=== PATIENT | male | born 1950 | race Caucasian/White ===

== ENCOUNTER 2017-07-16 17:54 | Emergency (ER) | payer MEDICARE, OTHER ==
[~2017-07-16] VITALS: Ht 182.9 cm; Wt 77.1 kg
[2017-07-16 17:56] VITALS: BP 122/81
[2017-07-16] MEDS ORDERED: LIDOCAINE 1%, 10ML ONE (18:22)
[2017-07-16] MEDS ORDERED: DIPH,PERTUSS(ACELL),TET VAC/PF 0.5 ML IM-VACC ONE ×2 (18:22→18:30)
[2017-07-16] MEDS ORDERED: LIDOCAINE 1%, 20ML INFIL ONE (18:30)
[2017-07-16] MEDS ORDERED: BACITRACIN ZINC OINT 500U/GM, 0.9 GM ONE (19:16)
== END 2017-07-16 19:30 | disposition home or self-care (01) ==
LOC: ED 19:00
DX: S01.81XA Laceration without foreign body of other part of head, initial encounter (principal); W01.198A Fall on same level from slipping, tripping and stumbling with subsequent striking against other object, initial encounter; Y93.89 Activity, other specified; Y92.89 Other specified places as the place of occurrence of the external cause; Y99.8 Other external cause status
CPT/HCPCS: 13132; 70450; 90471; 90715

== ENCOUNTER 2017-07-27 11:13 | Emergency (ER) | payer MEDICARE, OTHER ==
[~2017-07-27] VITALS: Ht 182.9 cm; Wt 75.0 kg
[2017-07-27 11:15] VITALS: BP 136/86
== END 2017-07-27 12:37 | disposition home or self-care (01) ==
LOC: ED 12:10
DX: S01.81XD Laceration without foreign body of other part of head, subsequent encounter (principal); X58.XXXD Exposure to other specified factors, subsequent encounter
CPT/HCPCS: 99282

== ENCOUNTER 2020-01-18 13:28 | Inpatient (IN) | payer MEDICARE, OTHER ==
[~2020-01-18] VITALS: Ht 182.9 cm; Wt 76.5 kg
[2020-01-18] MEDS ORDERED: HYDROmorphone 1 MG/ML, 1ML INJ ONE ×2 (14:15→19:18)
[2020-01-18] MEDS: HYDROmorphone 1 MG/ML, 1ML INJ IVPush PRN ×2 (14:18→19:21)
--- NOTE | 2020-01-18 14:19 | NUR ---
pt medicated per order. tech in room to place c colar. pt now states he is having neck pain. described s a dull achy pain.
--- NOTE | 2020-01-18 14:36 | NUR ---
poc is to admit pt. pt explained poc and agrees. still awaiting ct of neck for c colar clearance.
[2020-01-18 15:15] LABS: BASOPHILS # (AUTO) 0.05 x10^3/uL (0-0.1); BASOPHILS % (AUTO) 1 % (0-1); EOSINOPHILS # (AUTO) 0.16 x10^3/uL (0-0.4); EOSINOPHILS % (AUTO) 2 % (1-7); LYMPHOCYTES # (AUTO) 2.23 x10^3/uL (1-3.4); LYMPHOCYTES % (AUTO) 22 % (22-44); MD NO; MEAN CORPUSCULAR HEMOGLOBIN 29.9 pg (27.5-34.5); MEAN CORPUSCULAR HGB CONC 33.4 g/dL (33.2-36.2); MEAN CORPUSCULAR VOLUME 89.4 fL (81-97); MEAN PLATELET VOLUME 10.8 fL (7.4-10.4); MONOCYTES # (AUTO) 0.91 x10^3/uL (0.2-0.8); MONOCYTES % (AUTO) 9 % (2-9); NEUTROPHILS # (AUTO) 6.71 x10^3/uL (1.8-6.8); NEUTROPHILS % (AUTO) 67 % (42-75); PLATELET COUNT 244 x10^3/uL (130-400); RED BLOOD COUNT 5.76 x10^6/uL (4.38-5.82); RED CELL DISTRIBUTION WIDTH 13.5 % (9.4-14.8)
[2020-01-18 15:27] LABS: ALANINE AMINOTRANSFERASE 57 U/L (12-78); ALBUMIN 3.7 g/dL (3.4-5.0); ANION GAP 9 mmol/L (5-15); CALCIUM 9.6 mg/dL (8.5-10.1); CHLORIDE 110 mmol/L (98-107); CREATININE 0.41 mg/dL (0.7-1.3)
[2020-01-18 15:30] LABS: ALKALINE PHOSPHATASE 85 U/L (45-117); BILIRUBIN,TOTAL 0.7 mg/dL (0.2-1.0); TOTAL PROTEIN 7.5 g/dL (6.4-8.2)
--- NOTE | 2020-01-18 15:52 | NUR ---
PT IN X RAY NOW
[2020-01-18] MEDS ORDERED: GABAPENTIN 300 MG CAPSULE PO PRN (17:00)
[2020-01-18] MEDS ORDERED: HYDROcodone/APAP 5/325 TABLET PO PRN (17:00)
[2020-01-18] MEDS ORDERED: MELATONIN 5 MG TABLET PO PRN (17:00)
[2020-01-18] MEDS ORDERED: ACETAMINOPHEN 325 MG TABLET PO PRN (17:00)
[2020-01-18] MEDS ORDERED: ONDANSETRON 2MG/ML, 2ML IVPush PRN (17:00)
[2020-01-18] MEDS ORDERED: ONDANSETRON ODT 4 MG PO PRN (17:00)
--- NOTE | 2020-01-18 17:30 | NUR ---
PT RESTING COMFORTABLY. PER PT PAIN IS AT A TOLERABLE LEVEL. VSS, CALL LIGHT IN REACH, DOOR OPEN AND PT INSTRUCTED TO CALL FOR HELP.
[2020-01-18] MEDS ORDERED: ENOXAPARIN 40 MG/0.4 ML ONE (19:26)
[2020-01-18] MEDS: ENOXAPARIN 40 MG/0.4 ML SQ SCH (19:32)
[2020-01-18 21:00] VITALS: BP_SYST 121; BP_SYST 92; BP_DIAS 56; BP_DIAS 81
[2020-01-18] MEDS: DOCUSATE 100 MG CAPSULE PO SCH (21:00)
[2020-01-18] MEDS: SODIUM CHLORIDE 0.9% 1,000 ML IV SCH (21:18)
[2020-01-18] MEDS ORDERED: ZOLP5TAB PO (23:22)
[2020-01-18] MEDS: morphine SULFATE 10 MG/ML, 1ML IVPush PRN (23:31)
[2020-01-19] VITALS (7 sets, daily range): BP systolic 100–113; BP diastolic 66–78
[2020-01-19 06:15] LABS: BASOPHILS # (AUTO) 0.05 x10^3/uL (0-0.1); BASOPHILS % (AUTO) 1 % (0-1); EOSINOPHILS # (AUTO) 0.23 x10^3/uL (0-0.4); EOSINOPHILS % (AUTO) 3 % (1-7); LYMPHOCYTES # (AUTO) 2.15 x10^3/uL (1-3.4); LYMPHOCYTES % (AUTO) 28 % (22-44); MD NO; MEAN CORPUSCULAR HEMOGLOBIN 29.7 pg (27.5-34.5); MEAN CORPUSCULAR HGB CONC 33.1 g/dL (33.2-36.2); MEAN CORPUSCULAR VOLUME 89.8 fL (81-97); MEAN PLATELET VOLUME 11.3 fL (7.4-10.4); MONOCYTES # (AUTO) 0.72 x10^3/uL (0.2-0.8); MONOCYTES % (AUTO) 9 % (2-9); NEUTROPHILS % (AUTO) 59 % (42-75); PLATELET COUNT 223 x10^3/uL (130-400); RED BLOOD COUNT 5.28 x10^6/uL (4.38-5.82); RED CELL DISTRIBUTION WIDTH 13.7 % (9.4-14.8)
[2020-01-19 06:17] LABS: ANION GAP 9 mmol/L (5-15); CALCIUM 8.8 mg/dL (8.5-10.1); CHLORIDE 110 mmol/L (98-107); CREATININE 0.39 mg/dL (0.7-1.3)
[2020-01-19] MEDS: SODIUM CHLORIDE 0.9% 1,000 ML IV SCH (08:04)
[2020-01-19] MEDS: DOCUSATE 100 MG CAPSULE PO SCH ×2 (08:05→20:58)
[2020-01-19 08:21] LABS: MICROSCOPIC NOT IND
[2020-01-19] MEDS ORDERED: POTASSIUM CHLORIDE 20 MEQ TAB.ER.PRT PO ONE (09:30)
[2020-01-19 15:34] LABS: BASOS#(MANUAL) 0.08 x10^3/uL (0-0.1); BASOS% (MANUAL) 1 % (0-1); EOS#(MANUAL) 0.08 x10^3/uL (0.0-0.4); EOS% (MANUAL) 1 % (1-7); LYMPH#(MANUAL) 3.23 x10^3/uL (1-3.4); LYMPHS% (MANUAL) 42 % (22-44); MONOS#(MANUAL) 0.77 x10^3/uL (0.3-2.7); MONOS% (MANUAL) 10 % (2-9); SEG#(MANUAL) 3.54 x10^3/uL (1.8-6.8); SEGS% (MANUAL) 46 % (42-75)
[2020-01-19 15:36] LABS: <PLATELET ESTIMATE> ADEQUATE; <RBC MORPHOLOGY> NORMAL
[2020-01-19 15:37] LABS: LARGE PLATELETS 1+
[2020-01-19] MEDS: ENOXAPARIN 40 MG/0.4 ML SQ SCH (20:58)
[2020-01-19] MEDS: morphine SULFATE 10 MG/ML, 1ML IVPush PRN (21:06)
[2020-01-20 01:24] VITALS: BP 96/60
[2020-01-20] MEDS: morphine SULFATE 10 MG/ML, 1ML IVPush PRN ×3 (01:40→19:41)
[2020-01-20 05:50] LABS: ANION GAP 6 mmol/L (5-15); CALCIUM 9.3 mg/dL (8.5-10.1); CHLORIDE 110 mmol/L (98-107); CREATININE 0.44 mg/dL (0.7-1.3)
[2020-01-20 07:26] VITALS: BP 100/65
[2020-01-20] MEDS: METHOCARBAMOL 500 MG TABLET PO PRN (10:47)
[2020-01-20] MEDS: DOCUSATE 100 MG CAPSULE PO SCH (10:47)
[2020-01-20 13:40] VITALS: BP 100/66
[2020-01-20] MEDS: BISACODYL 10 MG SUPP PR PRN (17:53)
[2020-01-20 19:32] VITALS: BP 117/80
[2020-01-20] MEDS: ENOXAPARIN 40 MG/0.4 ML SQ SCH (20:39)
[2020-01-20] MEDS: DOCUSATE 50 MG/5 ML, 10ML UDC PO SCH (20:39)
[2020-01-21 00:50] VITALS: BP 105/68
[2020-01-21] MEDS: morphine SULFATE 10 MG/ML, 1ML IVPush PRN ×2 (02:23→20:59)
[2020-01-21] MEDS: METHOCARBAMOL 500 MG TABLET PO PRN ×2 (08:48→21:00)
[2020-01-21] MEDS: DOCUSATE 50 MG/5 ML, 10ML UDC PO SCH ×2 (08:49→09:00)
[2020-01-21 09:36] VITALS: BP 108/67
[2020-01-21] MEDS: DOCUSATE 100 MG CAPSULE PO SCH ×2 (11:45→21:00)
[2020-01-21 14:39] VITALS: BP 124/83
[2020-01-21 20:09] VITALS: BP 109/71
[2020-01-21] MEDS: ENOXAPARIN 40 MG/0.4 ML SQ SCH (20:59)
[2020-01-22] MEDS: morphine SULFATE 10 MG/ML, 1ML IVPush PRN (01:04)
[2020-01-22 01:27] VITALS: BP 118/78
[2020-01-22] MEDS: METHOCARBAMOL 500 MG TABLET PO PRN ×2 (06:09→19:56)
[2020-01-22 07:04] VITALS: BP 80/53
[2020-01-22] MEDS: DOCUSATE 100 MG CAPSULE PO SCH ×2 (07:54→19:57)
[2020-01-22] MEDS ORDERED: SODIUM CHLORIDE 0.9%, 500ML IVBOLUS ONE (08:00)
[2020-01-22 09:45] VITALS: BP 101/64
[2020-01-22] MEDS: BISACODYL 10 MG SUPP PR PRN (13:11)
[2020-01-22 14:07] VITALS: BP 117/81
[2020-01-22 19:37] VITALS: BP 108/69
[2020-01-22] MEDS: ENOXAPARIN 40 MG/0.4 ML SQ SCH (19:57)
[2020-01-23 00:54] VITALS: BP 118/71
[2020-01-23 07:57] VITALS: BP 102/65
[2020-01-23] MEDS ORDERED: PINK LADY ENEMA 490 ML BOTTLE PR ONE (08:00)
[2020-01-23] MEDS: DOCUSATE 100 MG CAPSULE PO SCH (08:03)
== END 2020-01-23 18:39 | disposition hospice, home (50) | DRG 56 ==
LOC: ED 14:42 → EDIP 16:40 → 3N 20:38
PROVIDERS: ADMIT Family Medicine; ATTEND Family Medicine
DX: G12.21 Amyotrophic lateral sclerosis (principal); R53.2 Functional quadriplegia; E46 Unspecified protein-calorie malnutrition; E87.2 Acidosis; R13.10 Dysphagia, unspecified; Z51.5 Encounter for palliative care; Z66 Do not resuscitate; D72.829 Elevated white blood cell count, unspecified; S42.035A Nondisplaced fracture of lateral end of left clavicle, initial encounter for closed fracture; E86.0 Dehydration; E87.6 Hypokalemia; F17.210 Nicotine dependence, cigarettes, uncomplicated; K59.00 Constipation, unspecified; M50.30 Other cervical disc degeneration, unspecified cervical region; G31.9 Degenerative disease of nervous system, unspecified; M89.58 Osteolysis, other site; R29.6 Repeated falls; R74.0 Nonspecific elevation of levels of transaminase and lactic acid dehydrogenase [LDH]; R53.81 Other malaise; Z99.3 Dependence on wheelchair; W01.0XXA Fall on same level from slipping, tripping and stumbling without subsequent striking against object, initial encounter; Y92.009 Unspecified place in unspecified non-institutional (private) residence as the place of occurrence of the external cause; Y93.89 Activity, other specified
CPT/HCPCS: 36415; 70450; 72125; 80048; 80053; 81003; 83735; 84100; 84155; 84156; 84165; 84166; 84443; 85025; 86480; 96374; 96376; 99285; G0378; J1170; J1650; J2270; J7030; J7040